=== PATIENT | female | born 1960 | race Caucasian/White ===

== ENCOUNTER 2024-11-11 17:41 | Emergency (ER) | payer BC, SELFPAY ==
[2024-11-11] VITALS (11 sets, daily range): BP systolic 141–185; BP diastolic 81–112; BMI 28.9
[2024-11-11 18:53] LABS: % Basophils 0.9 % (0-2); % Eosinophils 1.4 % (0-6); % Immature Granulocytes 0.2 % (0-0.5); % Lymphocytes 23.8 % (20.5-51.1); % Monocytes 7.9 % (1.7-9.3); % Neutrophils 65.8 % (42.2-75.2); Absolute Basophils 0.1 10^3/uL (0-0.2); Absolute Eosinophils 0.1 10^3/uL (0-0.7); Absolute Lymphocytes 1.5 10^3/uL (1.2-3.4); Absolute Monocytes 0.5 10^3/uL (0.1-0.6); Absolute Neutrophils 4.2 10^3/uL (1.4-6.5); Hematocrit 37.5 % (37.0-47.0); Hemoglobin 13.1 g/dL (12.0-16.0); Mean Corp Hgb Conc. 34.9 g/dL (33.0-37.0); Mean Corpuscular Hgb 31.9 pg (27.0-31.0); Mean Corpuscular Volume 91.2 fL (81.0-99.0); Mean Platelet Volume 9.3 fL (7.4-10.4); Nucleated Red Blood Cells % 0 %; Platelet Count 218 10^3/uL (130-400); Red Blood Cell Count 4.11 10^6/uL (4.20-5.40); Red Cell Dist. Width 11.9 % (11.5-14.5); White Blood Cell Count 6.4 10^3/uL (4.8-10.8)
--- NOTE | 2024-11-11 18:55 | ED.GENMED ---
History of Present Illness
General
Chief Complaint: Chest Pain
Source: patient
Exam Limitations: none
Time Seen by Provider: 11/11/24 18:45
Nursing documentation reviewed up to this point in time: agreed with
History of Present Illness
History of Present Illness:
Patient is a 64-year-old female with past medical history of hypertension hypercholesteremia and thyroid issues who presents to the ER for evaluation. Patient reports intermittently over the past 2 weeks she has had intermittent palpitations and
chest tightness. This is not associate with exertion. She did have a headache with this until x-rays could pass out. She is currently asymptomatic. She has been having issues with her blood pressure and couple weeks ago her losartan was
increased to 100 mg. Her family doctor also ordered an echo which she has scheduled for next .
She does report she is under a lot of stress her father recently .
She does not smoke. No prior history of cardiac disease.
Review of Systems
Review of Systems
Allergies reviewed?: Yes
All Other Systems: ROS reviewed and negative except as documented in HPI and ROS
Respiratory: Reports trouble breathing
Cardiac: Reports chest pain
Phy Exam
General Physical Exam
General Presentation: no apparent distress
General age: appears stated age
General Skin: warm and dry
General Habitus: normal
General Mental: alert
General Hydration: appears well hydrated
Cardiovascular Exam
Cardiovascular Exam: regular rate/rhythm, no murmur and normal peripheral pulses
Gastrointestinal Exam
Gastrointestinal Exam: normal bowel sounds and non tender
Neurological Exam
Neurological Exam: alert and oriented x3
Musculoskeletal Exam
Musculoskeletal Exam: full ROM
Skin Exam
Skin Exam: normal color and warm/dry
Psychiatric Exam
Psychiatric Exam: normal mood/affect
Scores
Heart Score for Chest Pain Patients
STEMI patient?: Not applicable
Course
Orders/Labs/Results
Orders:
Orders
11/11/24 17:42
Electrocardiogram (*1) Urgent
Reason for Study: Chest Pain
EKG- Treatment ONCE
11/11/24 18:47
Complete Blood Count/With Diff Urgent
Comprehensive Metabolic Panel Urgent
TSH Reflex To Free T4 Urgent
Comment: ADD ON
Troponin I Urgent
11/11/24 19:04
Add On- LAB Urgent
Tests Added?: tsh with reflexive t4
Chest [CR Chest - 2 Views ] Urgent
Comment:
Reason For Exam: cp
11/11/24 19:06
CT Head W/o Iv Contrast Urgent
Comment:
Reason For Exam: headache
11/11/24 21:20
Electrocardiogram (*1) Stat
Reason for Study: Abdominal Pain
EKG- Treatment ONCE
11/11/24 21:26
Troponin I Urgent
Abnormal Lab Results
11/11/24
18:47
RBC 4.11 L 10^6/uL
(4.20-5.40)
MCH 31.9 H pg
(27.0-31.0)
Chloride 110 H mmol/L
(98-107)
Glucose 113 H mg/dl
(70-99)
ALT 36 H U/L
(0-35)
Albumin 5.1 H g/dl
(3.5-5.0)
11/11/24 18:47
11/11/24 18:47
Vital Signs
Initial and Last Documented VS:
Initial Vital Signs
Temp Pulse Resp BP Pulse Ox
98.4 F 108 18 185/112 98
11/11/24 17:44 11/11/24 17:44 11/11/24 17:44 11/11/24 17:44 11/11/24 17:44
Last Documented Vital Signs
Temp Pulse Resp BP Pulse Ox
98.4 F 99 25 185/91 98
11/11/24 17:44 11/11/24 18:46 11/11/24 18:46 11/11/24 18:44 11/11/24 21:58
MDM/Problems Addressed
Differential Diagnosis Includes:
Not limited to palpitations, arrhythmia, ACS
MDM/Problems Addressed:
Patient is a 64-year-old female with history of hypertension hyperlipidemia complaining of intermittent palpitations and chest discomfort for the past 2 weeks. She is asymptomatic here no acute distress negative cardiac troponin no acute findings
on EKG no shortness of breath nontachypneic nontachycardic no risk factors for PE DVT.
Patient has been normal sinus rhythm here no arrhythmia. Stable for discharge home with chest pain hotline. Patient has an echo scheduled this week that her doctor ordered I did advise her to keep this appointment however still follow-up with
cardiology.
Chronic conditions affecting care:
htn
*Radiology
Radiology exam reviewed: preliminary read by ED provider and radiology read reviewed
*Pulse Oximetry
SaO2: 98
Oxygen Mode of Delivery: Room air
Patient hypoxic: no
*EKG
Interpreted by ED Provider?: Yes
Comparison EKG: no comparison EKG present
Heart Rate: 109
Rate: normal
Rhythm: sinus
Ischemia: no ischemia (repeat ekg hr 92 unchanged )
*Critical Care Note
Total Time (30-74mins, 75-104mins- exclusive of procedures): Not Applicable
ED Attending Note
-
Portions of this chart may have been created with voice recognition software.� Occasional wrong word or��sound alike� substitutions may have occurred due to the inherent limitations of voice recognition software.
Discharge Plan
Departure
Patient Disposition: Home (Routine Discharge)
Date of Disposition: 11/11/24
Time of Disposition: 22:39
Patient with high blood pressure during this ER visit?: Yes
Condition: Fair
Covid-19: Not Applicable
Discharge Problem:
Chest pain, Heart palpitations
Instructions: Palpitations - ED discharge instructions, Chest Pain DCA Follow Up, BLOOD PRESSURE
Referrals:
Francisco Javier Kenny MD [Active, Cardiology]
Cristina Wade DO [Family Provider, Family Practice]
Activity Restrictions/Additional Instructions:
As discussed follow low-salt diet.
Avoid caffeine.
continue to take your blood pressure medicine. You were placed on the chest pain hotline which means you should receive a phone call from the office in the next several days if you do not please call the office to schedule an appointment as soon
as possible. Please have your echo as previously scheduled next week. Return if any worsening of symptoms.
Interventions
Interventions:
*Risk Screen - Suicide Last Done: 11/11/24 17:44
*Neglect/Abuse Screening Last Done: 11/11/24 17:44
*ED- Fall Risk Assessment Last Done: 11/11/24 18:51
ED- Cardiac Assessment Last Done: 11/11/24 18:51
Discharge Date and Time
Print Language: CZECH
[2024-11-11 19:07] LABS: ALT (SGPT) 36 U/L (0-35); AST (SGOT) 29 U/L (14-36); Albumin 5.1 g/dl (3.5-5.0); Alkaline Phosphatase 57 U/L (38-126); Blood Urea Nitrogen 14 mg/dl (7-17); Calcium 9.7 mg/dl (8.4-10.2); Carbon Dioxide 23 mmol/L (22-30); Chloride 110 mmol/L (98-107); Estimated Creatinine Clearance 78 ml/min; Glucose 113 mg/dl (70-99); Sodium 141 mmol/L (135-145); Total Bilirubin 0.8 mg/dl (0.2-1.3); eGFR > 60.00
[2024-11-11 19:18] LABS: Troponin I < 0.012 ng/ml
[2024-11-11 19:56] LABS: TSH Reflex To Free T4 3.99 uIU/ml (0.47-4.68)
[2024-11-11 22:16] LABS: Troponin I < 0.012 ng/ml
== END 2024-11-11 23:15 | disposition home or self-care (01) ==
LOC: EMR 17:41
PROVIDERS: Nurse Practitioner; EMERGENCY PHYSICIAN Emergency Medicine; FAMILY PHYSICIAN Family Medicine
DX: R07.89 Other chest pain (principal); R06.02 Shortness of breath; R00.2 Palpitations; R51.9 Headache, unspecified; I10 Essential (primary) hypertension; E78.00 Pure hypercholesterolemia, unspecified; Z73.3 Stress, not elsewhere classified; Z63.4 Disappearance and death of family member; Z79.899 Other long term (current) drug therapy; Z88.6 Allergy status to analgesic agent; Z88.5 Allergy status to narcotic agent
CPT/HCPCS: 99285; 70450; 71046; 80053; 84443; 84484; 85025; 93005